=== PATIENT | female | born 1975 | race Two or more races ===

== ENCOUNTER → 2019-08-30 | Emergency (ER) | payer SELFPAY ==
[~2019-08-30] VITALS: Ht 154.9 cm; Wt 59.0 kg
[~2019-08-30] MED LIST: ACETAMINOPHEN 325 MG TAB PO ONE
[2019-08-30 11:40] VITALS: BP 125/86
== END | disposition home or self-care (01) ==
LOC: ER 11:29
DX: U07.1 COVID-19 (principal); J20.9 Acute bronchitis, unspecified; R05 Cough
CPT/HCPCS: 71045; 87070; 87635; 87804; 87880

== ENCOUNTER 2021-03-14 12:37 | Emergency (ER) | payer OTHER, SELFPAY ==
[~2021-03-14] VITALS: Ht 162.6 cm; Wt 68.0 kg
[2021-03-14 17:10] VITALS: BP 118/63
[2021-03-14] MEDS ORDERED: AMOX-277 PO (17:53)
[2021-03-14] MEDS ORDERED: ACET-1158 PO (17:53)
[2021-03-14] MEDS ORDERED: PRED20TA2 PO (17:53)
[2021-03-14] MEDS ORDERED: ALBUAER3 IN (17:53)
== END 2021-03-14 18:02 | disposition home or self-care (01) ==
LOC: ER 12:37
DX: U07.1 COVID-19 (principal); J06.9 Acute upper respiratory infection, unspecified
CPT/HCPCS: 36415; 71045; 87426

== ENCOUNTER 2024-02-14 10:09 | Emergency (ER) | payer MEDICAID, OTHER ==
[~2024-02-14] VITALS: Ht 152.4 cm; Wt 75.0 kg
[~2024-02-14 10:09] MED LIST changes: +ACET500T58 PO; -ACETAMINOPHEN 325 MG TAB PO ONE; +ALBUAER3 IN; +AMOX875T4 PO; +PRED20TA2 PO
[2024-02-14 10:39] VITALS: BP 117/46; PULSE 65; RESP 15; TEMP 98.4; O2SAT 98
--- NOTE | 2024-02-14 10:44 | ED.PDOC ---
Musculoskeletal HPI Comments A 48 YEAR OLD FEMALE PRESENTS TO THE ED WITH COMPLAINT OF RIGHT KNEE PAIN. PATIENT STATES SHE HAS BEEN EXPERIENCING RIGHT KNEE PAIN FOR THE PAST 4 DAYS. PATIENT DENIES ANY INJURY, BUT NOTES SHE HAS A JOB THAT INVOLVES A LOT OF WALKING. PATIENT DENIES FEVER, CHILLS, SHORTNESS OF BREATH, CHEST PAIN, ABDOMINAL PAIN, NAUSEA, VOMITING, HEADACHE, OR OTHER COMPLAINTS. NO OTHER SYMPTOMS OR MODIFYING FACTORS AT THIS TIME. PATIENT IS ALERT, ORIENTED X 4, AND HAS STEADY GAIT. Chief Complaint: Lower Extremity Time Seen by MD: 10:20 Primary Care Provider: ELISABET DOZIER Reviewed Notes: Nurses Notes, Medications, Allergies Allergies: Coded Allergies: NO KNOWN ALLERGIES (Unverified , 08/30/19) Home Meds Active Scripts Acetaminophen (Acetaminophen) 500 Mg Tab, 500 MG PO QIDP, #30 TAB 0 Refills Prov:MARK RAMOS 03/14/21 Albuterol Sulfate (VENTOLIN MDI) 90 Mcg Ih, 90 MCG IN QIDP, #1 INH 1 Refill Prov:MARK RAMOS 03/14/21 Prednisone (Prednisone) 20 Mg Tab, 20 MG PO BID, #14 MG 0 Refills Prov:MARK RAMOS 03/14/21 Amoxicillin & Pot Clavulanate (Amoxicillin/Potassium Cla) 875 Mg Tab, 1 TAB PO BID, #14 TAB 0 Refills Prov:MARK RAMOS 03/14/21 Information Source: Patient Mode of Arrival: Ambulatory Location: Right Extremity Location: Knee Timing: Days Prehospital treatment: None Severity: Moderate Able to Move Extremity: Yes Bear Weight: Fully Pain: Moderate Mechanism: No Trauma, Spontaneous Circumstances: Spontaneous Onset of Symptoms: Spontaneous Symptoms: Pain DVT Risk Factors: NONE Last Tetanus: Unknown Associated signs and symptoms: Knee pain Past Medical History PAST MEDICAL HISTORY: Denies Surgical History: Denies all surgeries LIGHTING EQUIPMENT OPERATOR History: No Pertinent LIGHTING EQUIPMENT OPERATOR History Family History Family History: Reviewed,noncontributory to illness, Family hx of DM Social History Smoker: Non-Smoker Alcohol: Occasionally Drugs: Denies Drug Use Lives In: Home Constitutional: denies: chills, diaphoresis, fatigue, fever, malaise, sweats, weakness, others EENTM: denies: blurred vision, double vision, ear bleeding, ear discharge, ear drainage, ear pain, ear ringing, eye pain, eye redness, hearing loss, mouth pain, mouth swelling, nasal discharge, nose bleeding, nose congestion, nose pain, photophobia, tearing, throat pain, throat swelling, voice changes, others Respiratory: denies: cough, hemoptysis, orthopnea, SOB at rest, shortness of breath, SOB with excertion, stridor, wheezing, others Cardiovascular: denies: chest pain, dizzy spells, diaphoresis, Dyspnea on exertion, edema, irregular heart beat, left arm pain, lightheadedness, palpitations, PND, syncope, others Gastrointestinal: denies: abdomen distended, abdominal pain, blood streaked bowels, constipated, diarrhea, dysphagia, difficulty swallowing, hematemesis, melena, nausea, poor appetite, poor fluid intake, rectal bleeding, rectal pain, vomiting, others Genitourinary: denies: abnormal vagina bleeding, burning, dyspareunia, dysuria, flank pain, frequency, hematuria, incontinence, pain, , vagina discharge, urgency, others Neurological: denies: dizziness, fainting, headache, left sided numbness, left sided weakness, numbness, paresthesia, pre-existing deficit, right sided numbness, right sided weakness, seizure, speech problems, tingling, tremors, weakness, others Musculoskeletal: reports: joint pain, joint swelling, others (RIGHT KNEE PAIN); denies: back pain, gout, muscle pain, muscle stiffness, neck pain Integumetry: denies: bruises, change in color, change in hair/nails, dryness, laceration, lesions, lumps, rash, wounds, others Allergic/Immunocompromised: denies: Difficulty Healing, Frequent Infections, Hives, Itching, others Hematologic/Lymphatic: denies: anemia, blood clots, easy bleeding, easy bruising, swollen glands, others Endocrine: denies: excessive hunger, excessive sweating, excessive thirst, excessive urination, flushing, intolerance to cold, intolerance to heat, unexplained weight gain, unexplained weight loss, others Psychiatric: denies: anxiety, bipolar disorder, depression, hopeless, panic disorder, schizophrenia, sleepless, suicidal, others All Other Systems: Reviewed and Negative Physical Exam General Appearance: No Apparent Distress, Normal HEENT: Normal ENT Inspection, PERRL/EOMI, Pharynx Normal, TMs Normal Neck: Full Range of Motion, Non-Tender, Normal, Normal Inspection Respiratory: Chest Non-Tender, Lungs Clear, No Accessory Muscle Use, No Respiratory Distress, Normal Breath Sounds Cardiovascular: No Edema, No JVD, No Murmur, No Gallop, Normal Peripheral Pulses, Regular Rate/Rhythm Breast Exam: Deferred Gastrointestinal: No Organomegaly, Non Tender, No Pulsatile Mass, Normal Bowel Sounds, Soft Genitalia: Deferred Pelvic: Deferred Rectal: Deferred Extremities: No calf tenderness, Normal capillary refill, Normal range of motion, No pedal edema, Tender (AND MILD SWELLING ON RIGHT LATERAL KNEE, NO BONY TENDERNESS AND DEFORMITY. ) Musculoskeletal : Apperance: Normal Neurologic: Alert, paper twister tender II-XII nml as Tested, No Motor Deficits, Normal Affect, Normal Mood, No Sensory Deficits Cerebellar Function: Normal Reflexes: Normal Skin: Dry, Normal Color, Warm Peripheral Pulses: 2+ carotid (R), 2+ carotid (L), 2+ dorsalis pedis (R), 2+ dorsalis pedis (L) Lymphatic: No Adenopathy Was a procedure done? Was a procedure done?: No Differential Diagnosis EXT Differential Diagnosis: Sprain, DJD, Contusion, Strain, Arthritis, Bursitis X-Ray, Labs, Meds, VS Vital Signs Date Time Temp Pulse Resp B/P (MAP) Pulse Ox O2 Delivery O2 Flow Rate FiO2 02/14/24 10:39 98.4 65 15 117/46 (69) 98 98.4 02/14/24 10:39 65 02/14/24 10:21 98.4 65 15 117/46 (69) 98 X-Ray, Labs, Meds, VS Comment EXTERNAL NOTES: NONE LABS ORDERED: NONE REVIEWED AND INTERPRETED RESULTS: NONE IMAGING ORDERED: XR KNEE RT: INDEPENDENT HISTORIANS: NONE TREATMENTS ORDERED: PATIENT'S CASE AND RESULTS HAVE BEEN DISCUSSED WITH THE ED ATTENDING PHYSICIAN AND THEY AGREE WITH MY PLAN OF CARE. I HAVE DISCUSSED IMAGING RESULTS WITH PATIENT AND HAVE INSTRUCTED THEM TO FOLLOW UP WITH THEIR PCP IN 1-2 DAYS. THE PATIENT FULLY UNDERSTANDS THEIR RESULTS AND IS AWARE THEY NEED TO FOLLOW UP WITH THEIR PCP FOR FURTHER EVALUATION IF THEIR SYMPTOMS PERSIST. Images Reviewed?: Images reviewed and evaluated by me Time of 1ST Reevaluation: 11:24 Reevaluation 1ST: Improved Patient Education/Counseling: Diagnosis, Treatment, Need For Follow Up Family Education/Counseling: Diagnosis, Treatment, Need For Follow Up Medical Screening: No EMC Exist At This Time Departure 1 Departure Time of Disposition: 11:40 Impression: Primary Impression: Internal derangement of right knee Disposition: HOME / SELF CARE / HOMELESS Condition: Stable Additional Instructions: FOLLOW-UP WITH PCP IN 1 TO 2 DAYS. TAKE MEDICATIONS PRESCRIBED. RETURN TO ED FOR ANY NEW OR WORSENING SYMPTOMS. e-Prescriptions Ibuprofen (Ibuprofen) 800 Mg Tab 1 TAB PO TID, #30 TAB Prov: CAITLYN JACKSON 02/14/24 Discharged With: Self Critical Care Note Critical Care Time?: No Stability Stability form required: No I personally scribed for CAITLYN JACKSON ([email or web address]) on 02/14/24 at 10:43. Electronically submitted by Jose A Strauss ([email or web address]). CAITLYN JACKSON Feb 14, 2024 10:43
[2024-02-14] MEDS ORDERED: IBUP-1456 PO (11:26)
--- NOTE | 2024-02-14 11:40 | DVH ---
CLINICAL INDICATION: PAIN, NO INJURY TECHNIQUE: 3 views of the right knee. XY R KNEE 3V XRAY Comparison: None FINDINGS/IMPRESSION: There is no evidence of acute fracture or dislocation. Moderate effusion in the suprapatellar recess.
== END 2024-02-14 11:34 | disposition home or self-care (01) ==
LOC: ER 10:09
DX: M23.91 Unspecified internal derangement of right knee (principal); Z79.52 Long term (current) use of systemic steroids; Z79.899 Other long term (current) drug therapy
CPT/HCPCS: 73562